=== PATIENT | male | born 1985 | race Two or more races ===

== ENCOUNTER 2020-08-12 15:00 | Emergency (ER) | payer OTHER ==
[~2020-08-12] VITALS: Ht 180.3 cm; Wt 83.9 kg
--- NOTE | 2020-08-12 15:17 | NUR ---
ED Nurse Note: pt presents to ED with L eye pain. pt states that he was cutting tile and some debris landed into his eye. pt states that he had goggles on, states that he can see where the piece is in his eye. pt denies any pain at this time, more uncomfortable when pt closes his eye
[2020-08-12 15:18] VITALS: BP 119/62
[2020-08-12] MEDS ORDERED: Fluorescein Strips LEFT EYE ONE (15:30)
[2020-08-12] MEDS ORDERED: Tetracaine 0.5% Opth 4ml Soln LEFT EYE ONE (15:30)
[2020-08-12] MEDS ORDERED: Morgan Lens TOPIC ONE (15:45)
[2020-08-12] MEDS ORDERED: OFLOXACIN10 ML OP (16:30)
--- NOTE | 2020-08-12 16:30 | Emergency Room Report ---
History of Present Illness General Chief Complaint: Eye Problems Source: Patient (Maite Crain) Present Illness HPI 35-year-old male with no significant past medical history here complaining of foreign body sensation left eye. Patient reports that he was working on a ceiling at work and the tile broke and feels like a particle inside his eyes. Denies any photophobia or blurry vision reports that he only feels it when he closes his eye. Was not wearing his contacts at home with reports that he bottles. Visual activity within normal limits. Denies photophobia, any bleeding through the eye. Denies any actual trauma to the face. Has not taken medication for symptom relief. 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 COVID-19 Screening: Negative COVID-19 (Maite Crain) Patient History Past Medical History: see triage record Past Surgical History: none Pertinent Family History: none Reviewed Nursing Documentation: PMH: Agreed; PSxH: Agreed (Maite Flores) Nursing Documentation-PMH Past Medical History: No History, Except For Hx Asthma: Yes (Maite Crain) Review of Systems All Other Systems: negative except mentioned in HPI (Maite Crain) Physical Exam Vital Signs Date Time Temp Pulse Resp B/P (MAP) Pulse Ox O2 Delivery O2 Flow Rate FiO2 08/12/20 15:11 97.3 66 16 119/62 (81) 99 Room Air Sp02 EP Interpretation: reviewed, normal General Appearance: no apparent distress, alert, GCS 15, non-toxic Head: normocephalic, atraumatic Eyes: right eye other - FB left eye, removed with humble lens, ; bilateral eye PERRL ENT: hearing grossly normal, normal pharynx, no angioedema, normal voice Neck: full range of motion, supple/symm/no masses Respiratory: chest non-tender, lungs clear, normal breath sounds, speaking full sentences Cardiovascular #1: regular rate, rhythm, no edema Gastrointestinal: soft Musculoskeletal: back normal Neurologic: alert, oriented Psychiatric: judgement/insight normal Lymphatic: no adenopathy (Maite Crain) Medical Decision Making PA Attestation All diagnoses and treatment plans were reviewed and discussed with my supervising physician Dr. Staples (Maite Crain) Diagnostic Impression: Primary Impression: Foreign body, eye Additional Impression: Conjunctivitis ER Course 35-year-old male with no significant past medical history here complaining of foreign body sensation left eye. Patient reports that he was working on a ceiling at work and the tile broke and feels like a particle inside his eyes. Denies any photophobia or blurry vision reports that he only feels it when he closes his eye. Was not wearing his contacts at home with reports that he bottles. Visual activity within normal limits. Denies photophobia, any bleeding through the eye. Denies any actual trauma to the face. Has not taken medication for symptom relief. Ddx considered but are not limited to: bacterial conjunctivitis, allergic conjun ctivitis, viral conjunctivitis, periorbital cellulitis, global trauma Vital signs: are WNL, pt. is afebrile H&PE are most consistent with: Removal of foreign body left eye, conjunctivitis ORDERS: Ofloxacin ophthalmic ED INTERVENTIONS: Humble lens No abrasion noted, small white foreign body noted near the cornea which was removed via Humble lens DISCHARGE: At this time pt. is stable for d/c to home. Will provide printed patient care instructions, and any necessary prescriptions. Care plan and follow up instructions have been discussed with the patient prior to discharge. Patient has an appointment with extracting machine operator on Tuesday and will follow up. Advised return to emergency room if worsening symptoms. (Maite rCain) Last Vital Signs Date Time Temp Pulse Resp B/P (MAP) Pulse Ox O2 Delivery O2 Flow Rate FiO2 08/12/20 15:18 97.3 86 16 119/62 99 Room Air (Maite Crain) Disposition: HOME, SELF-CARE Condition: Stable Scripts Ofloxacin (Ofloxacin) 5 Ml Drops 2 DROP OP Q6HR for 7 Days, #5 ML Prov: Maite Crain 08/12/20 Patient Instructions: Bacterial Conjunctivitis, [id number] Additional Instructions: Take medication as directed, follow-up with your extracting machine operator, if worsening symptoms return to the emergency room where protective glasses and sunglasses, avoid regular contacts for at least 1 week. Maite Crain Aug 12, 2020 16:30 Chuck Staples MD Aug 13, 2020 04:02
[2020-08-12 16:35] VITALS: BP 119/62
--- NOTE | 2020-08-12 16:35 | NUR ---
ER DISCHARGE NOTE: Patient is cleared to be discharged per ERMD, pt is aox4, on room air, with stable vital signs. pt was given dc and prescription instructions, pt was able to verbalize understanding, pt id band removed without complications. pt is able to ambulate with steady gait. pt took all belongings.
== END 2020-08-12 16:35 | disposition home or self-care (01) ==
LOC: EMR 16:28
DX: T15.92XA Foreign body on external eye, part unspecified, left eye, initial encounter (principal); S00.252A Superficial foreign body of left eyelid and periocular area, initial encounter; H10.9 Unspecified conjunctivitis; J45.909 Unspecified asthma, uncomplicated; X58.XXXA Exposure to other specified factors, initial encounter; Y93.89 Activity, other specified
CPT/HCPCS: 99283